=== PATIENT | female | born 1975 | race Caucasian/White ===

== ENCOUNTER 2017-04-22 14:20 | Observation (INO) | payer OTHER, MEDICAID ==
[~2017-04-22] VITALS: Ht 157.5 cm; Wt 93.0 kg
[2017-04-22] MEDS ORDERED: TERBUTALINE SULFATE 1 MG/ML 1ML VIAL SC ONE (15:02)
[2017-04-22] MEDS ORDERED: PREN-96 PO (15:07)
[2017-04-22] MEDS: TERBUTALINE SULFATE 1 MG/ML 1ML VIAL SC SCH ×3 (15:09→15:40)
[2017-04-22 15:29] LABS: Urine Bilirubin Negative (Negative); Urine Blood Negative /uL (Negative); Urine Color Yellow (Yellow); Urine Glucose Normal (Normal); Urine Hyaline Cast FEW /lpf (0 - 2); Urine Ketone Negative (Negative); Urine Nitrite Negative (Negative); Urine RBC <1 /hpf (0 - 4); Urine Squamous Epithelial Cell FEW /hpf (<5); Urine Urobilinogen Normal (Negative); Urine pH 5.5 (5.0-8.0)
[2017-04-22 16:10] LABS: Basophils # (auto) 0 uL; Basophils % (auto) 0.1 % (0.0-2.0); Eosinophils # (auto) 0 uL; Eosinophils % (auto) 0.2 % (0.0-7.0); Hematocrit 37.9 % (36.0-46.0); Hemoglobin 12.6 g/dL (12.2-16.2); Lymphocytes # (auto) 1.5 uL; Lymphocytes % (auto) 9.7 % (10.0-50.0); Mean Corpuscular Hemoglobin 29.9 pg (28.0-32.0); Mean Corpuscular Hgb Conc. 33.2 g/dL (32.0-36.0); Mean Corpuscular Volume 90.3 fL (80.0-100.0); Mean Platelet Volume 9.1 fL (6.9-10.8); Monocytes # (auto) 0.4 uL; Monocytes % (auto) 2.3 % (0.0-12.0); Neutrophils # (auto) 13.8 uL; Neutrophils % (auto) 87.7 % (37.0-80.0); Platelet Count (auto) 220 10^3/uL (140-450); Red Cell Distribution Width 13.7 % (11.8-14.3); White Blood Cell 15.7 10^3/uL (4.4-10.8)
[2017-04-22 16:26] LABS: Calcium 8.5 mg/dL (8.5-10.1)
[2017-04-22 16:28] LABS: INR 0.93 (0.9-1.15); Partial Thromboplastin Time 27.3 sec (22.64-33.71); Prothrombin Time 10.1 sec (9.37-12.3)
[2017-04-22 16:29] LABS: BUN/Creatinine Ratio 18.6
[2017-04-22 16:42] LABS: Bilirubin, Total 0.3 mg/dL (0.2-1.0); Total Protein 7.3 g/dL (6.4-8.2)
[2017-04-22 16:54] LABS: Uric Acid 2.6 mg/dL (2.6-6.0)
== END 2017-04-22 16:45 | disposition home or self-care (01) | DRG 782 ==
LOC: LDRP 14:20
PROVIDERS: ADMIT Obstetrics & Gynecology; ATTEND Obstetrics & Gynecology
DX: O62.9 Abnormality of forces of labor, unspecified (principal); O60.02 Preterm labor without delivery, second trimester; Z3A.26 26 weeks gestation of pregnancy
CPT/HCPCS: 36415; 59025; 76805; 80053; 80307; 81001; 81002; 84550; 85025; 85610; 85730; 86592; 86703; 86762; 86850; 86900; 86901; 87340; 96372; G0378; J3105

== ENCOUNTER 2017-07-24 11:20 | Inpatient (IN) | payer OTHER, MEDICAID ==
[~2017-07-24] VITALS: Ht 157.5 cm; Wt 96.2 kg
[~2017-07-24 11:20] MED LIST: PREN-96 PO
[2017-07-24] MEDS ORDERED: LACT. RINGERS/OXYTOCIN 20UNITS 1,000 ML IV SCH ×2 (11:44→12:01)
[2017-07-24] MEDS ORDERED: LACTATED RINGER'S 1,000 ML IV SCH (11:44)
[2017-07-24] MEDS ORDERED: METHYLERGONOVINE MALEATE 0.2 MG/ML AMP IM PRN (11:45)
[2017-07-24] MEDS ORDERED: LIDOCAINE 2%HCL (LOCAL ANESTH.) INJ 20ML MDV IJ PRN (11:45)
[2017-07-24] MEDS ORDERED: NALBUPHINE HCL 10 MG/1ml INJECTION IV PRN (11:45)
[2017-07-24] MEDS ORDERED: DERMOPLAST 60ML BOTTLE TOP PRN (11:45)
[2017-07-24] MEDS ORDERED: PHISODERM TOP SOLN 240ML BTL TOP PRN (11:45)
[2017-07-24] MEDS ORDERED: WITCH HAZEL-GLYCERIN PAD TOP PRN (11:45)
[2017-07-24] MEDS ORDERED: TERBUTALINE SULFATE 1 MG/ML 1ML VIAL SC ONE (12:15)
[2017-07-24 12:18] LABS: Basophils # (auto) 0 uL; Basophils % (auto) 0.3 % (0.0-2.0); Eosinophils # (auto) 0.1 uL; Eosinophils % (auto) 0.6 % (0.0-7.0); Hematocrit 36.5 % (36.0-46.0); Lymphocytes # (auto) 1.5 uL; Lymphocytes % (auto) 13.1 % (10.0-50.0); Mean Corpuscular Hemoglobin 29.5 pg (28.0-32.0); Mean Corpuscular Volume 89.4 fL (80.0-100.0); Monocytes # (auto) 0.6 uL; Monocytes % (auto) 4.7 % (0.0-12.0); Neutrophils # (auto) 9.5 uL; Neutrophils % (auto) 81.3 % (37.0-80.0); Platelet Count (auto) 242 10^3/uL (140-450); Red Blood Cells 4.08 10^6/uL (4.0-5.20); Red Cell Distribution Width 14.2 % (11.8-14.3); White Blood Cell 11.7 10^3/uL (4.4-10.8)
[2017-07-24 12:35] LABS: INR 0.89 (0.9-1.15); Partial Thromboplastin Time 26.8 sec (22.64-33.71); Prothrombin Time 9.7 sec (9.37-12.3)
[2017-07-24 12:36] LABS: Alcohol, Urine < 3.0 mg/dL (0-5); Amphetamine Screen, Urine NEGATIVE (NEGATIVE); Barbiturate Scree,Urine NEGATIVE (NEGATIVE); Benzodiazephine Screen, Urine NEGATIVE (NEGATIVE); Cannabinoid Screen, Urine NEGATIVE (NEGATIVE); Cocaine Screen, Urine NEGATIVE (NEGATIVE); Opiate Scree,Urine NEGATIVE (NEGATIVE); Phencyclidine Screen, Urine NEGATIVE (NEGATIVE)
[2017-07-24 12:37] LABS: Albumin 2.8 g/dL (3.4-5.0); Bilirubin, Total 0.3 mg/dL (0.2-1.0); Calcium 8.3 mg/dL (8.5-10.1); Potassium 3.7 mmol/L (3.5-5.1); Uric Acid 3.6 mg/dL (2.6-6.0)
[2017-07-24] MEDS: LACTATED RINGER'S 1,000 ML IV SCH ×2 (12:39→20:01)
[2017-07-24 12:41] LABS: Urine Bacteria NONE SEEN /hpf (None Seen); Urine Blood Negative /uL (Negative); Urine Specific Gravity 1.009 (1.001-1.035); Urine WBC <1 /hpf (0 - 5)
[2017-07-24 15:00] VITALS: BP 123/73
[2017-07-24] MEDS ORDERED: IBUPROFEN 600 MG TAB PO PRN (18:15)
[2017-07-24] MEDS ORDERED: ACETAMINOPHEN 325 MG TAB PO PRN (18:15)
[2017-07-24 18:54] VITALS: BP 134/67
[2017-07-24 23:42] VITALS: BP 128/70
[2017-07-25 03:37] VITALS: BP 106/61
[2017-07-25 07:00] VITALS: BP 114/66
[2017-07-25 11:00] VITALS: BP 112/58
== END 2017-07-25 15:00 | disposition home or self-care (01) | DRG 775 ==
LOC: LDRP 11:20 → OBSVTOIN 11:45
PROVIDERS: ADMIT Obstetrics & Gynecology; ATTEND Obstetrics & Gynecology
PROC: 10E0XZZ Delivery of Products of Conception, External Approach (ICD-10-PCS; principal; 2017-07-24)
DX: O48.0 Post-term pregnancy (principal); Z37.0 Single live birth; Z3A.40 40 weeks gestation of pregnancy
CPT/HCPCS: 36415; 59025; 59409; 80053; 80307; 81001; 81002; 84550; 85025; 85610; 85730; 86850; 86900; 86901; 96365; 96366; 96372; G0378; J2590

== ENCOUNTER 2020-09-18 22:01 | Inpatient (IN) | payer OTHER, MEDICAID ==
[~2020-09-18] VITALS: Ht 157.5 cm; Wt 113.0 kg
[2020-09-19] MEDS ORDERED: CLINDAMYCIN 600MG IV 50 ML IV ONE (00:45)
[2020-09-19] MEDS ORDERED: SODIUM CHLORIDE 0.9% 1,000 ML IV ONE ×2 (00:45)
[2020-09-19] MEDS ORDERED: cefTRIAXone 1GM/50ML D5W 50 ML IV ONE (00:45)
[2020-09-19 01:08] LABS: Basophils # (auto) 0 10 ^3/uL (0-0.2); Basophils % (auto) 0.2 % (0.0-2.0); Eosinophils # (auto) 0.3 10 ^3/uL (0-0.8); Eosinophils % (auto) 1.7 % (0.0-7.0); Hematocrit 40.2 % (36.0-46.0); Hemoglobin 13.3 g/dL (12.2-16.2); Lymphocytes # (auto) 2.6 10 ^3/uL (0.4-5.4); Mean Corpuscular Hemoglobin 28.6 pg (28.0-32.0); Mean Corpuscular Hgb Conc. 32.9 g/dL (32.0-36.0); Mean Corpuscular Volume 86.9 fL (80.0-100.0); Monocytes # (auto) 0.7 10 ^3/uL (0-1.3); Neutrophils # (auto) 12.8 10 ^3/uL (1.6-8.6); Neutrophils % (auto) 78.1 % (37.0-80.0); Nucleated Red Blood Cells % 0.1 %; Red Blood Cells 4.63 10^6/uL (4.0-5.20); Red Cell Distribution Width 13.6 % (11.8-14.3); White Blood Cell 16.4 10^3/uL (4.4-10.8)
[2020-09-19 01:15] LABS: Albumin 3.8 g/dL (3.4-5.0); BUN/Creatinine Ratio 26.6; Calcium 8.7 mg/dL (8.5-10.1); Potassium 3.5 mmol/L (3.5-5.1)
[2020-09-19 01:18] LABS: Bilirubin, Total 0.4 mg/dL (0.2-1.0)
[2020-09-19 02:03] LABS: INR 0.99 (0.9-1.15); Partial Thromboplastin Time 29.2 sec (23.0-31.2)
[2020-09-19] MEDS ORDERED: ACETAMINOPHEN 325 MG TAB PO PRN (02:30)
[2020-09-19] MEDS ORDERED: TEMAZEPAM 15 MG CAP PO PRN (02:30)
[2020-09-19] MEDS ORDERED: ONDANSETRON HCL 4 MG/2 ML VIAL IV PRN (02:30)
[2020-09-19 04:30] VITALS: BP 127/66
[2020-09-19] MEDS ORDERED: TRAN1TAB PO (05:10)
[2020-09-19] MEDS: CLINDAMYCIN 600MG IV 50 ML IV SCH ×3 (05:31→21:43)
[2020-09-19] MEDS: HYDROcodone-ACET 5/325MG TAB PO PRN ×2 (05:32→13:35)
[2020-09-19 08:30] VITALS: BP 109/60
[2020-09-19 09:22] LABS: Urine Bacteria NONE SEEN /hpf (None Seen); Urine Blood Negative /uL (Negative); Urine Mucus FEW (None Seen); Urine Specific Gravity 1.027 (1.001-1.035); Urine WBC 1 /hpf (0 - 5)
[2020-09-19] MEDS: FAMOTIDINE 20 MG TAB PO SCH ×2 (09:41→21:44)
[2020-09-19] MEDS: cefTRIAXone 1GM/50ML D5W 50 ML IV SCH (09:46)
[2020-09-19] MEDS ORDERED: methylPREDNISolone SOD SUCC 125 MG/2 ML VL IV ONE (10:45)
[2020-09-19 12:30] VITALS: BP 124/76
[2020-09-19] MEDS: diphenhdrAMINE HCL 25 MG CAP PO SCH ×2 (13:33→21:44)
[2020-09-19 17:00] VITALS: BP 114/60
[2020-09-19 22:00] VITALS: BP 120/76
[2020-09-20] MEDS: CLINDAMYCIN 600MG IV 50 ML IV SCH ×3 (05:13→21:34)
[2020-09-20] MEDS: diphenhdrAMINE HCL 25 MG CAP PO SCH ×3 (05:14→21:34)
[2020-09-20 05:17] VITALS: BP 103/51
[2020-09-20 05:34] LABS: Basophils # (auto) 0 10 ^3/uL (0-0.2); Eosinophils # (auto) 0 10 ^3/uL (0-0.8); Hematocrit 36.3 % (36.0-46.0); Hemoglobin 12.3 g/dL (12.2-16.2); Lymphocytes # (auto) 0.8 10 ^3/uL (0.4-5.4); Lymphocytes % (auto) 4.6 % (10.0-50.0); Mean Corpuscular Hemoglobin 29.3 pg (28.0-32.0); Mean Corpuscular Hgb Conc. 33.8 g/dL (32.0-36.0); Mean Corpuscular Volume 86.8 fL (80.0-100.0); Monocytes # (auto) 0.3 10 ^3/uL (0-1.3); Monocytes % (auto) 1.8 % (0.0-12.0); Neutrophils # (auto) 15.8 10 ^3/uL (1.6-8.6); Neutrophils % (auto) 93.6 % (37.0-80.0); Red Blood Cells 4.19 10^6/uL (4.0-5.20); Red Cell Distribution Width 13.6 % (11.8-14.3); White Blood Cell 16.8 10^3/uL (4.4-10.8)
[2020-09-20 05:59] LABS: Calcium 8.2 mg/dL (8.5-10.1)
[2020-09-20 08:30] VITALS: BP 121/67
[2020-09-20] MEDS: cefTRIAXone 1GM/50ML D5W 50 ML IV SCH (09:06)
[2020-09-20] MEDS: methylPREDNISolone SOD SUCC 125 MG/2 ML VL IV SCH (09:07)
[2020-09-20] MEDS: FAMOTIDINE 20 MG TAB PO SCH ×2 (09:07→21:35)
[2020-09-20 12:30] VITALS: BP 116/66
[2020-09-20 16:40] VITALS: BP 121/72
[2020-09-20 21:46] VITALS: BP 128/79
[2020-09-21] MEDS: diphenhdrAMINE HCL 25 MG CAP PO SCH ×2 (05:12→13:50)
[2020-09-21] MEDS: CLINDAMYCIN 600MG IV 50 ML IV SCH ×2 (05:12→13:51)
[2020-09-21 05:37] VITALS: BP 122/56
[2020-09-21 08:31] VITALS: BP 132/80
[2020-09-21] MEDS: cefTRIAXone 1GM/50ML D5W 50 ML IV SCH (09:12)
[2020-09-21] MEDS: methylPREDNISolone SOD SUCC 125 MG/2 ML VL IV SCH (09:12)
[2020-09-21] MEDS: FAMOTIDINE 20 MG TAB PO SCH (09:12)
[2020-09-21 12:34] VITALS: BP 136/77
== END 2020-09-21 14:35 | disposition home or self-care (01) | DRG 603 ==
LOC: ER 22:01 → WEST WING 09-19 02:23
PROVIDERS: ADMIT Nurse Practitioner; ATTEND Family Medicine
DX: L03.116 Cellulitis of left lower limb (principal); D72.829 Elevated white blood cell count, unspecified; E66.9 Obesity, unspecified; Z20.822 Contact with and (suspected) exposure to COVID-19; I48.91 Unspecified atrial fibrillation; Z68.35 Body mass index [BMI] 35.0-35.9, adult
CPT/HCPCS: 36415; 71045; 73700; 80048; 80053; 81001; 83605; 84484; 84702; 85025; 85610; 85730; 87040; 87426; 93971; 96365; 96368; 96375; G0378; J0696; J3490